=== PATIENT | male | born 1960 | race Asian ===

== ENCOUNTER 2025-01-12 13:20 | Emergency (ER) | payer OTHER, SELFPAY ==
[2025-01-12] VITALS (13 sets, daily range): BP systolic 157–186; BP diastolic 77–135; PULSE 53–87; RESP 14–26; TEMP 36.4–36.5; O2SAT 97–100; BMI 29.1
--- NOTE | 2025-01-12 13:35 | PC.NURSE ---
Pt used bathroom prior to triage.
--- NOTE | 2025-01-12 13:36 | DI.RAD.S_ITS ---
PROCEDURE: XR CHEST 1V INDICATIONS: chest pain TECHNIQUE: One view of the chest was acquired. COMPARISON: None. FINDINGS: Surgical changes and devices: None. Lungs and pleura: Lungs are clear. No pleural effusions or pneumothorax. Mediastinum: Mediastinal contours appear normal. Heart size is normal. Bones and chest wall: No suspicious bony lesions. Overlying soft tissues appear unremarkable. IMPRESSION: No acute cardiopulmonary abnormality is seen. Dictated by: Guy Forde M.D. on 01/12/2025 at 13:55 Approved by: Guy Forde M.D. on 01/12/2025 at 13:55
--- NOTE | 2025-01-12 13:36 | EKG_ITS ---
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
--- NOTE | 2025-01-12 14:05 | PC.NURSE ---
Pt sitting up in [place]. Appears in NAD. Denies chest pain or SOB. BP 169/98
[2025-01-12 14:07] LABS: Add Manual Diff / Slide Review NO; Basophils Absolute Auto 0 /uL (0-100); Basophils Percent Auto 0.9 % (0-2); Eosinophils Absolute Auto 100 /uL (0-450); Eosinophils Percent Auto 1.4 % (2-4); Hematocrit 42.1 % (41-53); Hemoglobin 13.9 g/dL (13.5-17.5); Lymphocytes Absolute Auto 1900 /uL (1100-4500); Lymphocytes Percent Auto 34.5 % (25-40); Mean Corpuscular HGB Conc 32.9 % (30-36); Mean Corpuscular Volume 82.2 fL (80-100); Monocytes Absolute Auto 300 /uL (0-900); Neutrophils Absolute Auto 3200 /uL (1500-7000); Neutrophils Percent Auto 57.2 % (50-75); Platelet Count 221 X10^3/uL (150-400); Red Blood Cell Count 5.13 X10^6/uL (4.5-5.9); Red Cell Distribution Width 13.6 % (11.6-14.8); White Blood Cell Count 5.6 X10^3/uL (4.5-11.0)
[2025-01-12 14:08] LABS: Prothrombin Time 10.9 SECONDS (9.4-12.5)
[2025-01-12 14:11] LABS: PTT Partial Thromboplastin Tim 37 SECONDS (25.1-36.5)
[2025-01-12 14:23] LABS: Alanine Aminotransferase 32 IU/L (<50); Albumin 4.6 g/dL (3.5-5.0); Albumin Globulin Ratio 1.4 (1.0-2.8); Alkaline Phosphatase 54 U/L (38-126); Aspartate Aminotransferase 32 IU/L (17-59); BUN Creatinine Ratio 16.5 (6-22); Bilirubin Total 0.7 mg/dL (0.2-1.3); Blood Urea Nitrogen 17 mg/dL (9-20); Calcium 9.5 mg/dL (8.4-10.2); Carbon Dioxide 30 mmol/L (22-32); Chloride 99 mmol/L (98-107); Creatine Kinase 187 U/L (55-170); Estimated Glomerular Filt Rate > 60 mL/min (>60); Globulin 3.4 g/dL (1.7-4.1); Glucose 111 mg/dL (80-110); HEMOLYSIS < 15 (0-50); Lipase 98 U/L (23-300); Magnesium 2.1 mg/dL (1.6-2.3); Potassium 3.4 mmol/L (3.4-5.1); Sodium 139 mmol/L (137-145)
[2025-01-12 14:34] LABS: NT-proBNP (BNP-Adult 18+) < 20 pg/mL (<125); Troponin I < 0.012 ng/mL (0.01-0.034)
--- NOTE | 2025-01-12 14:45 | ED_ITS ---
HPI - General Adult General Chief complaint: Hypertension Stated complaint: BP not coming down 198/100 last reading Time Seen by Provider: 01/12/25 14:17 Source: patient Mode of arrival: Ambulatory History of Present Illness HPI narrative: 64-year-old gentleman with a history of hypertension currently on combination blood pressure 20 lisinopril/25 hydrochlorothiazide today was having some fullness on the left side of his head checked his blood pressure at work and found that it was elevated at 190/90. He was seen by his primary care provider who changed his blood pressure medication from 20 lisinopril 25 hydrochlorothiazide to 80 mg of Micardis to start tomorrow. Patient does have that prescription filled and with him. Because of the headache was instructed to come to the ER for further evaluation. He did take his blood pressure medication this morning. He notes that his blood pressure is usually better controlled. He has not complaining of chest pain, shortness for breath no actual vision changes and notes that the tightness on the left side of his zoroastrianism area has improved. No new medications, no trauma, no nausea, vomiting, diarrhea Review of Systems Review of Systems Narrative: Pertinent positive and negative findings as per HPI Patient History Medical History (Updated 01/12/25 @ 17:34 by Victorina Myers MD) Hypertension Social History Smoking Status: Never smoker Smoking Status: Never smoker Exam Initial Vital Signs Initial Vital Signs: Vital Signs Temperature 97.7 F 01/12/25 13:36 Pulse Rate 57 L 01/12/25 13:36 Respiratory Rate 16 01/12/25 13:36 Blood Pressure 186/98 H 01/12/25 13:36 Pulse Oximetry 99 01/12/25 13:36 Oxygen Delivery Method Room Air 01/12/25 13:36 General: Healthy appearing, in no acute distress. Able to give a complete and coherent history. Well-nourished well-developed HEENT: Moist mucous membranes, normal sclera with reactive pupils, Respiratory: Lungs are clear to auscultation, no wheezing no rales no rhonchi. Full and symmetrical air movement Cardiac: Regular rate and rhythm no murmurs no bruits Abdomen: Soft, nontender, good bowel tones, no flank pain Skin: Warm and dry, no rashes Neurologic: Grossly neurologically intact with no obvious asymmetries or abnormalities Extremities: well perfused Psych: Cooperative, appropriate insight and affect Course Orders Ordered: Discontinued Medications Aspirin (Aspirin 81 Mg Chew Tab) 324 mg PO NOW ONE Stop: 01/12/25 13:36 Last Admin: 01/12/25 14:37 Dose: Not Given Documented By: Lisinopril (Lisinopril 20 Mg Tablet) 20 mg PO NOW ONE Stop: 01/12/25 17:18 Last Admin: 01/12/25 17:27 Dose: 20 mg Documented By: Vital Signs Vital signs: Vital Signs - 8 hr 01/12/25 13:36 01/12/25 14:34 01/12/25 15:00 Temperature 97.7 F Pulse Rate 57 L 55 L Respiratory Rate 16 14 Blood Pressure 186/98 H 161/92 H Pulse Oximetry 99 99 Oxygen Delivery Method Room Air 01/12/25 15:00 01/12/25 15:30 01/12/25 15:30 Temperature Pulse Rate 55 L 53 L Respiratory Rate 18 24 Blood Pressure 165/93 H Pulse Oximetry 99 99 Oxygen Delivery Method 01/12/25 16:00 01/12/25 16:00 01/12/25 16:11 Temperature Pulse Rate 53 L 57 L Respiratory Rate 21 26 H Blood Pressure 159/77 H Pulse Oximetry 100 97 Oxygen Delivery Method 01/12/25 16:11 01/12/25 16:30 01/12/25 16:30 Temperature Pulse Rate 54 L Respiratory Rate 22 Blood Pressure 175/91 H 176/89 H Pulse Oximetry 99 Oxygen Delivery Method 01/12/25 17:00 01/12/25 17:01 01/12/25 17:01 Temperature Pulse Rate 54 L 55 L Respiratory Rate 23 21 Blood Pressure 173/81 H Pulse Oximetry 99 99 Oxygen Delivery Method Room Air Medical Decision Making Lab Data 01/12/25 13:51 01/12/25 13:51 Labs: Lab Results 01/12/25 Range/Units 13:51 WBC 5.6 (4.5-11.0) X10^3/uL RBC 5.13 (4.5-5.9) X10^6/uL Hgb 13.9 (13.5-17.5) g/dL Hct 42.1 (41-53) % MCV 82.2 (80-100) fL MCH 27.0 (26-34) PG MCHC 32.9 (30-36) % RDW 13.6 (11.6-14.8) % Plt Count 221 (150-400) X10^3/uL Neut % (Auto) 57.2 (50-75) % Lymph % (Auto) 34.5 (25-40) % [place] % (Auto) 6.0 (3-14) % Eos % (Auto) 1.4 L (2-4) % Baso % (Auto) 0.9 (0-2) % Neut # (Auto) 3200 (0437-1392) /uL Lymph # (Auto) 1900 (3590-8628) /uL [place] # (Auto) 300 (0-900) /uL Eos # (Auto) 100 (0-450) /uL Baso # (Auto) 0 (0-100) /uL PT 10.9 (9.4-12.5) SECONDS INR 1.0 (0.9-1.3) APTT 37 H (25.1-36.5) SECONDS Sodium 139 (137-145) mmol/L Potassium 3.4 (3.4-5.1) mmol/L Chloride 99 (98-107) mmol/L Carbon Dioxide 30 (22-32) mmol/L BUN 17 (9-20) mg/dL Creatinine 1.03 (0.66-1.25) mg/dL Estimated GFR > 60 (>60) mL/min BUN/Creatinine Ratio 16.5 (6-22) Glucose 111 H (80-110) mg/dL Calcium 9.5 (8.4-10.2) mg/dL Magnesium 2.1 (1.6-2.3) mg/dL Total Bilirubin 0.7 (0.2-1.3) mg/dL AST 32 (17-59) IU/L ALT 32 (<50) IU/L Alkaline Phosphatase 54 (38-126) U/L Total Creatine Kinase 187 H (55-170) U/L Troponin I < 0.012 (0.01-0.034) ng/mL NT-Pro-B Natriuret Pep < 20 (<125) pg/mL Total Protein 8.0 (6.3-8.2) g/dL Albumin 4.6 (3.5-5.0) g/dL Globulin 3.4 (1.7-4.1) g/dL Albumin/Globulin Ratio 1.4 (1.0-2.8) Lipase 98 (23-300) U/L MDM Narrative Medical decision making narrative: CC: Persistently elevated blood pressure, pressure in the left temporal area Complicating co-morbidities: As primary physician today changing blood pressure medication with 80 mg of Micardis to begin in the morning Data collected from: patient, Differential considered: Primary hypertension, hypertensive crisis, tension headache, blood pressure related headache, stroke-like syndrome, acute coronary syndrome Exam documented above, pertinent findings include: Headache is resolved by the time of my evaluation and exam is entirely benign Lab Test results independently reviewed as above. Pertinent findings: CBC is unremarkable with no anemia Chemistries are reassuring with normal renal function, normal electrolytes Troponin is undetectable BNP is not elevated Independently reviewed EKG: EKG shows a rate of 56 with no acute ischemic changes Imaging studies independently reviewed: Chest x-ray shows no acute pathology Treatments: Additional 20 mg of oral lisinopril Discussion: 64-year-old gentleman with blood pressure elevated without signs of stroke, acute coronary syndrome or hypertensive crisis. He has given an extra dose of lisinopril this evening for a total of 20 mg of lisinopril today. I have suggested that he start the 80 mg of Micardis as prescribed by his primary physician tomorrow morning. Asked him to check his blood pressures 2-3 hours after his blood pressure medications and clearly reviewed signs and symptoms that would indicate repeat ER visit was required. Questions are answered and he is safe for discharge Discharge Plan Departure Patient Disposition: Home Clinical Impression: Hypertension Qualifiers: Hypertension type: primary hypertension Qualified Code(s): I10 - Essential (primary) hypertension Instructions: DI for High Blood Pressure Activity Restrictions/Additional Instructions: Thank you for coming in today Fortunately, your workup in the emergency department was very reassuring. Your EKG was normal, your chest x-ray does not show abnormalities and specifically does not show an enlarged heart. Your blood work shows normal kidney function, normal liver function and no evidence of acute heart attack I have given you an extra dose of 20 mg of lisinopril this evening. In the morning I would like you to switch over completely to the new prescription of 80 mg of Micardis that you are given earlier today. Check your blood pressure 3-4 hours after taking your blood pressure medication, while seated and after a few minutes of slow deep breathing to relax your body prior to taking your blood pressure Reasons to return to the emergency department are symptoms of stroke, severe headache, confusion or heart attack with chest pain dizziness or palpitations associated with significantly elevated blood pressure. Please do follow up with your primary physician. It will be very helpful if you keep a list of your blood pressure so your primary physician we will no what recommendations are going to be to keep you healthy. Stand Alone Forms: Patient Portal/API/Survey
[2025-01-12] MEDS: lisinopriL 20 MG TABLET PO (17:27)
== END 2025-01-12 17:57 | disposition home or self-care (01) ==
PROVIDERS: Emergency Provider Emergency Medicine
DX: I10 Essential (primary) hypertension (principal)
CPT/HCPCS: 36415; 71045; 80053; 82550; 83690; 83735; 83880; 84484; 85025; 85610; 85730; 93005; 99284